=== PATIENT | female | born 1980 | race Caucasian/White ===

== ENCOUNTER → 2018-08-11 | Outpatient (CLI) | payer BC ==
--- NOTE | 2018-08-11 15:06 | MY ---
Diagnostic Digital Lt CLINICAL HISTORY: Left breast nodule COMPARISON: Current mammogram TECHNIQUE: Craniocaudal compression and mediolateral views of the left breast breasts were obtained using low dose, digital soft tissue technique.Images were reviewed with a radiologist prior to completion. Computer-Aided Detection System was utilized. FINDINGS: Nodular density seen in the central lateral aspect of the left breast persists with spot compression. It is not seen on the ML view. Impression: Nodular density seen on tomosynthesis the persists with spot compression Recommendation: Left lateral breast ultrasound BI-RADS 0: Incomplete. Needs additional imaging evaluation needed. .
--- NOTE | 2018-08-11 15:12 | US ---
Breast Limited Lt CLINICAL HISTORY: Left breast nodule FINDINGS: In the 5:00 region of the left breast approximately 4 cm from the nipple is a 6 x 7 x 5 mm hypoechoic nodule with slightly irregular margins. There is no significant shadowing. There is some internal flow. There are some benign-appearing lymph nodes in the axilla. At 12:00 there is a 3 x 2 x 3 mm hypoechoic nodule with some internal echoes and mild wall thickening. This is likely a complex cyst. IMPRESSION: Indeterminate solid nodule in the 5:00 region of the left breast approximate 4 cm from the nipple Recommendation: Ultrasound-guided core biopsy Small complex cyst at 12:00. Short-term follow-up ultrasound in 4-6 months is recommended BI-RADS 4B: Suspicious. Moderate suspicion for malignancy. Findings and recommendations were discussed with the patient at the time of the exam Providers office was some notified at the time of this exam
== END ==
LOC: JP.MAM 14:13
PROVIDERS: ATTEND Nurse Practitioner Family
DX: R92.8 Other abnormal and inconclusive findings on diagnostic imaging of breast (principal); N64.89 Other specified disorders of breast; N63.23 Unspecified lump in the left breast, lower outer quadrant
CPT/HCPCS: 76642-LT; 76642-LT-26; 77065-26-LT; 77065-LT

== ENCOUNTER 2019-05-06 22:06 | Emergency (ER) | payer BC ==
[2019-05-06 22:24] VITALS: BP 127/65; PULSE 89
--- NOTE | 2019-05-06 22:52 | EDM.PDOC ---
ED HPI GENERAL MEDICAL PROBLEM - General Chief Complaint: ENT Problem Stated Complaint: SOMETHING IS STUCK IN HER THROAT Time Seen by Provider: 05/06/19 22:30 Source of Information: Reports: Patient History Limitations: Reports: No Limitations - History of Present Illness INITIAL COMMENTS - FREE TEXT/NARRATIVE: 38-year-old female with persistent odynophagia since a brief obstruction of her upper airway 2 weeks ago with some beef jerky. Since that time she is having difficulty eating anything but soft foods and liquids. She feel there is a progressive level of obstruction she develops with solid foods. Tonight she became very anxious and was afraid to go to bed fearing airway obstruction so came in to be seen. She was seen at the emergency room at [place] a week and a half ago and because she could swallow food they reassured her and no further work-up was done. 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: Psychiatric History: Reports: Anxiety - Infectious Disease History Infectious Disease History: Reports: Chicken Pox Social & Family History - Tobacco Use Smoking Status *Q: Current Every Day Smoker Years of Tobacco use: 20 Packs/Tins Daily: 0.5 - Caffeine Use Caffeine Use: Reports: Coffee - Alcohol Use Days Per Week of Alcohol Use: 2 Number of Drinks Per Day: 2 Total Drinks Per Week: 4 - Recreational Drug Use Recreational Drug Use: No ED ROS ENT - Review of Systems Review Of Systems: See Below Constitutional: Denies: Fever, Chills HEENT: Reports: Throat Pain (See HPI) Respiratory: Denies: Shortness of Breath Cardiovascular: Denies: Chest Pain GI/Abdominal: Denies: Nausea, Vomiting Skin: Reports: No Symptoms Neurological: Reports: No Symptoms Psychiatric: Reports: Anxiety ED EXAM, ENT - Physical Exam Exam: See Below Exam Limited By: No Limitations General Appearance: Alert, Anxious Mouth/Throat: Normal Inspection Head: Atraumatic Respiratory/Chest: No Respiratory Distress, Lungs Clear Neurological: Alert, Oriented Psychiatric: Anxious Skin: Warm, Dry Course - Vital Signs Last Recorded V/S: Last Vital Signs Temp 98.0 F 05/06/19 22:22 Pulse 89 05/06/19 22:22 Resp 18 05/06/19 22:22 BP 127/65 05/06/19 22:22 Pulse Ox 99 05/06/19 22:22 - Re-Assessments/Exams Free Text/Narrative Re-Assessment/Exam: 05/06/19 22:48 Patient will return tomorrow morning for an EGD by Dr. Gillette, surgery was notified. No further treatment necessary tonight. Departure - Departure Time of Disposition: 23:14 Disposition: Home, Self-Care 01 Clinical Impression: Odynophagia - Discharge Information Instructions: Upper Endoscopy Referrals: Kaci Barton CNM [Primary Care Provider] - Forms: ED Department Discharge Care Plan Goals: Nothing to eat or drink after 1-2 o'clock this morning, and return at 830 to register for an EGD with Dr. Gillette. Sepsis Event Note - Evaluation Sepsis Screening Result: No Definite Risk - Focused Exam Vital Signs: Vital Signs Temp Pulse Resp BP Pulse Ox 05/06/19 22:22 98.0 F 89 18 127/65 99 Date Exam was Performed: 05/06/19 Time Exam was Performed: 23:36
== END 2019-05-06 23:03 | disposition home or self-care (01) ==
LOC: JP.ED 22:06
DX: R13.10 Dysphagia, unspecified (principal); F17.210 Nicotine dependence, cigarettes, uncomplicated; Z88.1 Allergy status to other antibiotic agents
CPT/HCPCS: 99283

== ENCOUNTER 2019-05-07 07:57 | Day surgery (SDC) | payer BC ==
[2019-05-07] MEDS ORDERED: Midazolam 1 MG/ML 2 ML SDV ONE (10:09)
[2019-05-07] MEDS ORDERED: fentaNYL 100 MCG/2 ML SDV ONE (10:09)
[2019-05-07] MEDS ORDERED: Propofol 200 MG/20 ML SDV ONE (10:09)
[2019-05-07] MEDS ORDERED: Lactated Ringers 1,000 ML ONE (10:34)
[2019-05-07 12:12] VITALS: BP 105/58
[2019-05-07 13:45] VITALS: PULSE 87
--- NOTE | 2019-05-09 13:16 | OR ---
DATE OF PROCEDURE: 05/07/2019 SURGEON: Spencer Gillette MD PROCEDURE: Esophagogastroduodenoscopy. FINDINGS: 1. Gastritis, mild. 2. Mild inflammation at GE junction consistent with reflux disease (biopsied in all 4 quadrants). COMPLICATIONS: None. MANAGER SHELL: None. ANESTHESIA: MAC. RISKS: Risks, benefits, alternatives, and limitations including, but not limited to infection, bleeding, and perforation were explained to the patient, who wished to proceed. PROCEDURE IN DETAIL: The patient was placed in left lateral decubitus position. The EGD scope was introduced and advanced atraumatically to the second part of the duodenum. No evidence of duodenitis nor any ulcers. On retroflexion, there was no significant hiatal hernia. The patient did have very mild gastritis. No evidence of ulceration. GE junction showed mild inflammation. This was biopsied in all 4 quadrants. The remainder of the esophagus was normal. The patient tolerated the procedure well. Spencer Gillette MD /[id number]
== END 2019-05-07 13:30 ==
LOC: JP.SDS 07:57
PROVIDERS: ATTEND Surgery
DX: K20.8 Other esophagitis (principal); K29.70 Gastritis, unspecified, without bleeding; F17.210 Nicotine dependence, cigarettes, uncomplicated; Z88.0 Allergy status to penicillin; Z79.3 Long term (current) use of hormonal contraceptives
CPT/HCPCS: 43239; 88305; 88312; J2250; J2704; J3010; J7120

== ENCOUNTER 2019-05-08 13:52 | Emergency (ER) | payer BC ==
[2019-05-08 14:08] VITALS: BP 129/78; PULSE 100
--- NOTE | 2019-05-08 15:01 | EDM.PDOC ---
ED HPI GENERAL MEDICAL PROBLEM - General Chief Complaint: ENT Problem Stated Complaint: SOMETHING STUCK IN THROAT Time Seen by Provider: 05/08/19 15:01 Source of Information: Reports: Patient History Limitations: Reports: No Limitations - History of Present Illness INITIAL COMMENTS - FREE TEXT/NARRATIVE: pt was scoped on the 4th. Everything looked good at that point. She now has the sensation that there is something in the esophagus but it is lower than it was prior to the scope. Duration: Hour(s): Location: Reports: Other ( feeling that things are going down slowly and shuting off at times. 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 Patient denies problems herself. - Infectious Disease History Infectious Disease History: Reports: Chicken Pox - Past Surgical History Other HEENT Surgeries/Procedures: Father of throat cancer Other Oncologic Surgeries/Procedures: Patient father of throat cancer Social & Family History - Family History Cardiac: Reports: Hypertension Other Oncologic Family History: throat cancer - Tobacco Use Smoking Status *Q: Current Every Day Smoker Years of Tobacco use: 20 Packs/Tins Daily: 0.5 - Caffeine Use Caffeine Use: Reports: Coffee Caffeine Use Comment: Drinks coffee daily and all day long. ED ROS ENT - Review of Systems Review Of Systems: See Below Constitutional: Reports: No Symptoms HEENT: Reports: No Symptoms Respiratory: Reports: No Symptoms Cardiovascular: Reports: No Symptoms Endocrine: Reports: No Symptoms GI/Abdominal: Reports: Other ( swallowing difficulty) : Reports: No Symptoms ED EXAM, ENT - Physical Exam Exam: See Below Text/Narrative:: pt arrived still having the sensation that there is something in the espogus She does feel that it is lower. Exam Limited By: No Limitations General Appearance: Alert, Anxious, Mild Distress Ears: Normal TMs Nose: Normal Inspection Mouth/Throat: Normal Inspection Respiratory/Chest: Other ( no congestion in the cghest. ) Course - Vital Signs Last Recorded V/S: Last Vital Signs Temp 36.7 C 05/08/19 14:25 Pulse 100 05/08/19 14:25 Resp 16 05/08/19 14:25 BP 129/78 05/08/19 14:25 Pulse Ox 98 05/08/19 14:25 - Re-Assessments/Exams Free Text/Narrative Re-Assessment/Exam: 05/11/19 07:19 Dr Gillette was contacted and he wanted her to come to the clinic so that pressure studies in the esophagus could be done. Departure - Departure Time of Disposition: 15:00 Disposition: Home, Self-Care 01 Condition: Fair Clinical Impression: Swallowing dysfunction - Discharge Information Instructions: Gastritis, Adult, [id number] Referrals: PCP,None [Primary Care Provider] - Forms: ED Department Discharge Care Plan Goals: appt with Dr Gillette at the [facility] at 11 thirty tomorrow for further studies. Sepsis Event Note - Evaluation Sepsis Screening Result: No Definite Risk - Focused Exam Date Exam was Performed: 05/11/19 Time Exam was Performed: 07:18
== END 2019-05-08 15:28 | disposition home or self-care (01) ==
LOC: JP.ED 13:52
DX: R13.10 Dysphagia, unspecified (principal); F17.210 Nicotine dependence, cigarettes, uncomplicated; Z88.0 Allergy status to penicillin
CPT/HCPCS: 99283

== ENCOUNTER 2020-05-28 19:49 | Emergency (ER) | payer BC ==
[2020-05-28 20:53] VITALS: BP 149/97; PULSE 94
--- NOTE | 2020-05-28 21:29 | EDM.PDOC ---
ED HPI GENERAL MEDICAL PROBLEM - General Chief Complaint: Eye Problems Stated Complaint: LEFT EYE BLURRED Time Seen by Provider: 05/28/20 21:08 Source of Information: Reports: Patient, RN Notes Reviewed History Limitations: Reports: No Limitations - History of Present Illness INITIAL COMMENTS - FREE TEXT/NARRATIVE: 39-year-old female presents to the emergency department today with concern about her left eye she noticed 2 separate occasions the pupil was oblong shaped however it appears to be normal she had no symptoms at the time, she reports to the emergency department she feels she is back to her normal state her vision is of normal acuity she is having no symptoms - Related Data Allergies Allergy/AdvReac Type Severity Reaction Status Date / Time amoxicillin [Amoxicillin] Allergy Hives Verified 05/28/20 20:54 Home Meds: Home Meds Cyclobenzaprine [Flexeril] 10 mg PO TID PRN 08/13/18 [History] Norethindrone [Deblitane] 1 tab PO DAILY 05/28/20 [History] Nortriptyline 10 mg PO DAILY PRN 05/28/20 [History] Omeprazole 20 mg PO DAILY 05/28/20 [History] Past Medical History Respiratory History: Reports: None 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 Patient denies problems herself. - Infectious Disease History Infectious Disease History: Reports: Chicken Pox - Past Surgical History Other HEENT Surgeries/Procedures: Father of throat cancer Other Oncologic Surgeries/Procedures: Patient father of throat cancer Social & Family History - Family History Cardiac: Reports: Hypertension Other Oncologic Family History: throat cancer - Tobacco Use Tobacco Use Status *Q: Current Every Day Tobacco User Years of Tobacco use: 15 Packs/Tins Daily: 0.5 - Caffeine Use Caffeine Use: Reports: Coffee Caffeine Use Comment: Drinks coffee daily and all day long. - Recreational Drug Use Recreational Drug Use: No ED ROS GENERAL - Review of Systems Review Of Systems: See Below Constitutional: Reports: No Symptoms HEENT: Reports: Vision Change Respiratory: Reports: No Symptoms Cardiovascular: Reports: No Symptoms GI/Abdominal: Reports: No Symptoms Neurological: Reports: No Symptoms ED EXAM GENERAL W FULL EYE - Physical Exam Exam: See Below Exam Limited By: No Limitations General Appearance: Alert, WD/WN, No Apparent Distress Eye Exam: Bilateral Eye: EOMI, Normal Fundi, Normal Inspection, PERRL Visual Acuity (R) 20/: 25 Visual Acuity (L) 20/: 25 With Correction: No Eyelids: Bilateral: Normal Appearance Conjunctiva & Sclera: Bilateral: Normal Appearance Cornea Exam: Bilateral: Normal Appearance Extraocular Movements: Bilateral: Intact Pupils: Normal Accommodation Pupillary Size: Bilateral: 4 mm Pupillary Reaction: Bilateral: Brisk Anterior Chamber: Bilateral: Normal Appearance Posterior Chamber: Bilateral: Normal Funduscopic Course - Vital Signs Last Recorded V/S: Last Vital Signs Temp 98.0 F 05/28/20 20:52 Pulse 94 05/28/20 20:52 Resp 16 05/28/20 20:52 BP 149/97 H 05/28/20 20:52 Pulse Ox 97 05/28/20 20:52 Departure - Departure Time of Disposition: 21:28 Disposition: Home, Self-Care 01 Condition: Fair Clinical Impression: Change in vision - Discharge Information Referrals: Kaci Barton CNM [Primary Care Provider] - Additional Instructions: Please follow-up with your eye care provider in the morning, call or return to the emergency department worsening of symptoms Sepsis Event Note (ED) - Evaluation Sepsis Screening Result: No Definite Risk - Focused Exam Vital Signs: Vital Signs Temp Pulse Resp BP Pulse Ox 05/28/20 20:52 98.0 F 94 16 149/97 H 97 - Assessment/Plan Plan: Assessment Acuity = acute Site and laterality = change in vision with spontaneous recovery Etiology = unknown Manifestations = none Location of injury = Home Lab values = none Plan She is going to follow-up with her eye care provider in the morning for further evaluation This note was dictated using [employer] recognition software please call with any questions on syntax or grammar.
== END 2020-05-28 21:40 | disposition home or self-care (01) ==
LOC: JP.ED 19:49
DX: H53.8 Other visual disturbances (principal); K21.9 Gastro-esophageal reflux disease without esophagitis; Z72.0 Tobacco use; Z88.0 Allergy status to penicillin; Z79.899 Other long term (current) drug therapy
CPT/HCPCS: 99282; 99284

== ENCOUNTER 2022-06-19 08:14 | Day surgery (SDC) | payer OTHER, MEDICAID ==
[~2022-06-19 08:14] MED LIST: Sodium Chloride 0.9% 1,000 ML IV SCH
[2022-06-19] MEDS ORDERED: Propofol 200 MG/20 ML SDV ONE ×2 (08:48→09:52)
[2022-06-19] MEDS ORDERED: Midazolam 1 MG/ML 2 ML SDV ONE (08:48)
[2022-06-19] MEDS ORDERED: fentaNYL 50 MCG/ML SDV ONE (08:48)
[2022-06-19 11:21] VITALS: BP 120/72; PULSE 82
== END 2022-06-19 11:20 | disposition home or self-care (01) ==
LOC: JP.SDS 08:14
PROVIDERS: ATTEND Surgery
DX: Z12.11 Encounter for screening for malignant neoplasm of colon (principal); F41.9 Anxiety disorder, unspecified; K21.9 Gastro-esophageal reflux disease without esophagitis; Z87.19 Personal history of other diseases of the digestive system; Z79.899 Other long term (current) drug therapy; Z88.0 Allergy status to penicillin
CPT/HCPCS: 45378; 81025; J2250; J2704; J3010; J7030